=== PATIENT | female | born 1950 | race Caucasian/White ===

== ENCOUNTER 2021-06-19 17:20 | Emergency (ER) | payer MEDICARE, OTHER ==
[~2021-06-19] VITALS: Ht 160 cm; Wt 47.6 kg
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
--- NOTE | 2021-06-19 17:56 | NUR ---
DR NASSAR AT BEDSIDE
--- NOTE | 2021-06-19 18:10 | NUR ---
XRAY AT BEDSIDE
[2021-06-19] MEDS ORDERED: IBUP-1955 PO (19:05)
[2021-06-19 19:29] VITALS: BP 131/76
--- NOTE | 2021-06-19 19:29 | NUR ---
Patient discharged to home in stable condition. Written and verbal after care instructions given. Patient verbalizes understanding of instruction.
== END 2021-06-19 19:30 | disposition home or self-care (01) ==
LOC: ER 17:27
DX: S82.62XA Displaced fracture of lateral malleolus of left fibula, initial encounter for closed fracture (principal); W18.39XA Other fall on same level, initial encounter; Y93.89 Activity, other specified; Y92.89 Other specified places as the place of occurrence of the external cause; Y99.8 Other external cause status
CPT/HCPCS: 73610-TC